=== PATIENT | male | born 1955 | race Caucasian/White ===

== ENCOUNTER → 2018-01-13 09:09 | Outpatient (CLI) | payer OTHER, SELFPAY ==
--- NOTE | 2018-01-13 | DI.ECHO.S_ITS ---
[facility] +---------+ : : [address] : : : : [id number] : : : : Phone: [phone]+ Echocardiogram Report + + :Name: OSMEL HECK Study Date: 01/13/2018 Height: 71 in : :[facility] Weight: 173 lb : : Gender: Male BSA: 2.0 m2 : :: 1955 Age: 62 yrs BP: 130/84 mmHg: :Reason For Study: Light-Headedness/Pre-Syncope : : Performed By: Camille Hartman : :Referring: [id number] : + + Interpretation Summary The left ventricle is normal in size, wall thickness, and systolic function without any focal wall motion abnormalities with the ejection fraction visually estimated to be 60-65%. Assessment of diastolic parameters indicates a relaxation abnormality of the left ventricle, consistent with normal filling pressures. The right ventricle is mild to moderately dilated and right ventricular systolic function is mildly reduced. The right ventricular systolic pressure is estimated at 27 mmHg assuming a right atrial pressure of 3 mm Hg. Both atria are normal in size. There is no significant valvular heart disease. The ascending aorta and aortic arch are mildly enlarged. Procedure: A two-dimensional transthoracic echocardiogram with color flow and Doppler was performed. The study quality was technically good. There is no prior echocardiogram noted for this patient. The patient was in normal sinus rhythm during the exam. Left Ventricle: The left ventricle is normal in size, wall thickness, and systolic function without any focal wall motion abnormalities. The ejection fraction is estimated to be 60-65%. Assessment of diastolic parameters indicates a relaxation abnormality of the left ventricle, consistent with normal filling pressures. Right Ventricle: The right ventricle is mild to moderately dilated. Right ventricular systolic function is mildly reduced. Atria: Both atria are normal in size. The interatrial septum is intact with no evidence for an atrial septal defect. Mitral Valve: The mitral valve is normal in structure and function. There is no mitral regurgitation noted. Aortic Valve: The aortic valve is trileaflet. The aortic valve opens well. No aortic regurgitation is present. Tricuspid Valve: The tricuspid valve is normal in structure and function. There is a trace or physiologic amount of tricuspid regurgitation. The right ventricular systolic pressure is estimated at 27 mmHg assuming a right atrial pressure of 3 mm Hg. Pulmonic Valve: The pulmonic valve is normal in structure and function. There is a trace or physiologic amount of pulmonic regurgitation. There is no significant valvular heart disease. Great Vessels: The aortic root is normal size. The ascending aorta is mildly enlarged. The aortic arch is mildly enlarged. The IVC is of normal diameter and collapses greater than 50% with a sniff. This suggests a low right atrial pressure of 3 mm Hg. Pericardium/ Pleura There is no pericardial effusion. There is no pleural effusion. MMode/2D Measurements & Calculations LVIDd: 4.6 cm Ao root diam: 3.5 cm LVIDs: 2.7 cm Aortic Jxn: 3.1 cm FS: 41.5 % asc Aorta Diam: 3.6 cm EPSS: 0.22 cm Ao Arch Diam (Prox Trans): 3.3 cm IVSd: 0.81 cm LVPWd: 0.73 cm LV moyer. diameter/BSA (cm/m^2): 2.3 LV sys. diameter/BSA (cm/m^2): 1.4 LA dimension: 3.5 cm RA long axis: 4.8 cm LA A2 area: 17.2 cm2 RA area: 13.1 cm2 LA A4 area: 16.0 cm2 RA vol: 30.7 ml LA length (vol): 5.1 cm RA : 15.5 ml/m2 LA vol: 45.8 ml RVDd major: 4.8 cm LA vol index: 23.1 ml/m2 RVD1 (basal): 3.5 cm RVD2 (mid): 2.9 cm Doppler Measurements & Calculations Ao V2 max: 132.5 cm/sec MV E max fred: 58.7 cm/sec Ao V2 mean: 84.3 cm/sec MV A max fred: 63.0 cm/sec Ao max P.0 mmHg MV E/A: 0.93 Ao mean P.4 mmHg Med Peak E' Fred: 6.9 cm/sec Ao V2 VTI: 26.2 cm E/E' med: 8.5 Lat Peak E' Fred: 12.8 cm/sec E/E' lat: 4.6 E/e' average: 6.6 MV dec time: 0.29 sec MV P1/2t: 85.5 msec TR max fred: 246.8 cm/sec MV P1/2t max fred: 59.0 cm/sec TR max P.4 mmHg MVA(P1/2t): 2.6 cm2 PA V2 max: 123.3 cm/sec PA V2 mean: 72.6 cm/sec PA mean P.6 mmHg PA Accel Time: 0.09 sec Reading Physician:ELSA
== END ==
PROVIDERS: PCP Specialist; Visit Provider Family Medicine
DX: R42 Dizziness and giddiness (principal)
CPT/HCPCS: 93306